=== PATIENT | female | born 1930 | race Caucasian/White ===

== ENCOUNTER → 2016-05-31 | Outpatient (CLI) | payer MEDICARE ==
[~2016-05-31] MED LIST: /PANT40TA; /WARF25TA; /WARF5TA; ACET65TA; ALDA25TA2; ALLO300T; ATEN25TA; BABY81CH; CALCCHW12; DIGO0.126; GEMF600T; LANO0.1211; LASI40TA; LOVAZA; NIAS500T2; PRAV40TA; SPIR25TA2; THERGRAN
--- NOTE | 2016-05-31 10:31 | REP ---
Clinical: Contusion. Technique: AP, lateral, bilateral oblique views of the left foot. Findings: There is an acute nondisplaced fracture at the base of the fifth metatarsal bone. Overlying soft tissue swelling is appreciated. Underlying chronic age-related degenerative changes noted. Small fracture fragments along the lateral aspect of the foot at the calcaneal cuboid joint may represent small acute fracture fragments as well. Impression: Nondisplaced fracture at the base of the fifth metatarsal bone. Small fracture fragments related to the calcaneal cuboid joint region cannot be excluded. Signed by Israel Castro MD 05/31/2016 10:22 A
--- NOTE | 2016-05-31 10:32 | REP ---
Clinical: Contusion. Technique: AP, lateral, bilateral oblique views of the left ankle. Findings: Diffuse soft tissue swelling is appreciated without evidence for ankle fracture. Lateral view best demonstrates a nondisplaced fracture at the base of the fifth metatarsal bone. Trauma involving the calcaneus as well as small fracture fragments along the anterior-superior margin of the calcaneus at the calcaneocuboid region cannot be excluded as well. Impression: Diffuse ankle swelling. Nondisplaced fracture at the fifth metatarsal base. Possible trauma and fractures involving the calcaneus as detailed above. Signed by Israel Castro MD 05/31/2016 10:25 A
== END ==
LOC: M WUC 09:53
PROVIDERS: ATTEND Physician Assistant
DX: S92.355A Nondisplaced fracture of fifth metatarsal bone, left foot, initial encounter for closed fracture (principal); X58.XXXA Exposure to other specified factors, initial encounter; Y92.9 Unspecified place or not applicable

== ENCOUNTER → 2016-11-27 | Outpatient (CLI) | payer MEDICARE ==
[~2016-11-27] MED LIST changes: +ATEN25TA PO; +ATOR40TA75; +ATOR40TA75 PO; +BENZ100C5 PO; +CALC1CAP31; +CALC1CAP31 PO; +CEFD1CAP8; +CEFD1CAP8 PO; +CINA30TA; +DILT30TA; +DILT30TA PO; +FERR1TAB8 PO; +FERR325T3 PO; +FURO40TA2; +FURO40TA2 PO; +ICAPCAP PO; +SENS60TA PO; +SPIR25TA2 PO; +TRAM1CAP15 PO; +TYLE500T78 PO; +VITA100066 PO; +VITA100067 PO; +ZYLO300T4 PO
--- NOTE | 2016-11-27 15:15 | REP ---
Chest x-ray: Two views. History: Fever and cough. Comparison study: June 17, 2009. Findings: There is a mild eventration right hemidiaphragm. The lungs are well inflated and otherwise clear. Pleural angles are sharp. The heart is not enlarged. The aorta is rather tortuous. There are degenerative changes in the thoracic spine. Pulmonary vasculature is not increased. Impression: No active disease. Signed by Graham Garcia MD 11/27/2016 03:06 P
[2016-11-27 18:21] LABS: ALBUMIN 4.1 GM/DL (3.2-5.2); BILIRUBIN,TOTAL 0.6 MG/DL (0.2-1.0); CALCIUM LEVEL 9.7 MG/DL (8.8-10.2); CREATININE FOR GFR 2.51 MG/DL (0.55-1.02); GLOMERULAR FILTRATION RATE 19.4 (>32); TOTAL PROTEIN 8.2 GM/DL (6.4-8.2)
[2016-11-27 18:39] LABS: BASO % 0.2 % (0.0-1.0); LARGE UNSTAINED CELL # 0.1 K/mm3 (0.0-0.4); LARGE UNSTAINED CELL % 0.7 % (0.0-4.0); LYMPH # 1.3 K/mm3 (1.5-4.5); LYMPH % 6.3 % (24.0-44.0); MEAN CORPUSCULAR HEMOGLOBIN 30.4 pg (27.0-33.0); MEAN CORPUSCULAR HGB CONC 33.2 g/dl (32.0-36.5); MEAN CORPUSCULAR VOLUME 91.7 fl (80.0-96.0); MONO # 0.5 K/mm3 (0.0-0.8); MONO % 2.7 % (0.0-5.0); NEUTROPHILS # 17.2 K/mm3 (1.8-7.7); PLATELET COUNT, AUTOMATED 229 k/mm3 (150-450); RED CELL DISTRIBUTION WIDTH 16.1 % (11.5-14.5); WHITE BLOOD COUNT 19.1 K/mm3 (4.0-10.0)
== END ==
LOC: M WUC 14:43
PROVIDERS: ATTEND Physician Assistant
DX: R05 Cough (principal); R50.9 Fever, unspecified

== ENCOUNTER 2016-11-28 10:26 | Inpatient (IN) | payer MEDICARE ==
[~2016-11-28] VITALS: Ht 154.9 cm; Wt 62.6 kg
[2016-11-28] MEDS: HEPARIN SOD (PORCINE) 5000 UNITS/ML VIAL SC SCH ×2 (09:00→20:09)
[~2016-11-28 10:26] MED LIST changes: -ATEN25TA PO; +ATENOLOL 25 MG TAB PO SCH; -ATOR40TA75; -ATOR40TA75 PO; -BENZ100C5 PO; -CALC1CAP31; -CALC1CAP31 PO; -CEFD1CAP8; -CEFD1CAP8 PO; -CINA30TA; -DILT30TA; -DILT30TA PO; -FERR1TAB8 PO; -FERR325T3 PO; -FURO40TA2; -FURO40TA2 PO; -ICAPCAP PO; -SENS60TA PO; -SPIR25TA2 PO; -TRAM1CAP15 PO; -TYLE500T78 PO; -VITA100066 PO; -VITA100067 PO; -ZYLO300T4 PO
[2016-11-28] MEDS ORDERED: TYLE500T78 PO ×2 (10:54→12:28)
[2016-11-28] MEDS ORDERED: TRAM1CAP15 PO (10:54)
[2016-11-28] MEDS ORDERED: SPIR25TA2 (10:54)
[2016-11-28] MEDS ORDERED: VITA100067 PO (10:54)
[2016-11-28] MEDS ORDERED: FERR325T3 PO (10:54)
[2016-11-28] MEDS ORDERED: CINA30TA (10:54)
[2016-11-28] MEDS ORDERED: CEFD1CAP8 (10:54)
[2016-11-28] MEDS ORDERED: ICAPCAP PO ×2 (10:54→12:33)
[2016-11-28] MEDS ORDERED: ATOR40TA75 (10:54)
[2016-11-28] MEDS ORDERED: FURO40TA2 (10:54)
[2016-11-28] MEDS ORDERED: DILT30TA (10:54)
[2016-11-28] MEDS ORDERED: CALC1CAP31 (10:54)
[2016-11-28] MEDS ORDERED: NS 500 ML IV ONE ×2 (11:45)
[2016-11-28 12:00] LABS: BASO % 0.3 % (0.0-1.0); EOS # 0.1 K/mm3 (0.0-0.50); EOS % 0.5 % (0.0-3.0); LARGE UNSTAINED CELL # 0.2 K/mm3 (0.0-0.4); LYMPH # 1.7 K/mm3 (1.5-4.5); MEAN CORPUSCULAR HEMOGLOBIN 30.7 pg (27.0-33.0); MEAN CORPUSCULAR VOLUME 90.2 fl (80.0-96.0); MONO # 0.5 K/mm3 (0.0-0.8); MONO % 3.4 % (0.0-5.0); NEUTROPHILS # 13.3 K/mm3 (1.8-7.7); NEUTROPHILS % 84.7 % (36.0-66.0); PLATELET COUNT, AUTOMATED 209 k/mm3 (150-450); RED CELL DISTRIBUTION WIDTH 16.1 % (11.5-14.5); WHITE BLOOD COUNT 15.7 K/mm3 (4.0-10.0)
[2016-11-28 12:24] LABS: ALBUMIN 3.7 GM/DL (3.2-5.2); ALBUMIN/GLOBULIN RATIO 0.97 (1.00-1.93); ALKALINE PHOSPHATASE 95 U/L (45-117); ALT/SGPT 21 U/L (12-78); ANION GAP 14 MEQ/L (8-16); AST/SGOT 24 U/L (15-37); BILIRUBIN,DIRECT 0.2 MG/DL (0.0-0.2); BILIRUBIN,TOTAL 0.6 MG/DL (0.2-1.0); BLOOD UREA NITROGEN 81 MG/DL (7-18); CALCIUM LEVEL 9.6 MG/DL (8.8-10.2); CARBON DIOXIDE LEVEL 17 MEQ/L (21-32); CHLORIDE LEVEL 105 MEQ/L (98-107); CREATININE FOR GFR 3.11 MG/DL (0.55-1.02); FREE T4 1.44 NG/DL (0.76-1.46); GLOMERULAR FILTRATION RATE 15.1 (>32); GLUCOSE, FASTING 138 MG/DL (83-110); MAGNESIUM LEVEL 2.4 MG/DL (1.8-2.4); POTASSIUM SERUM 3.8 MEQ/L (3.5-5.1); SODIUM LEVEL 136 MEQ/L (136-145); TOTAL PROTEIN 7.5 GM/DL (6.4-8.2)
[2016-11-28] MEDS ORDERED: ZYLO300T4 PO (12:28)
[2016-11-28] MEDS ORDERED: DILT30TA PO (12:33)
[2016-11-28] MEDS ORDERED: VITA100066 PO (12:33)
[2016-11-28] MEDS ORDERED: SPIR25TA2 PO (12:33)
[2016-11-28] MEDS ORDERED: FERR1TAB8 PO (12:33)
[2016-11-28] MEDS ORDERED: CALC1CAP31 PO (12:33)
[2016-11-28] MEDS ORDERED: FURO40TA2 PO (12:33)
[2016-11-28] MEDS ORDERED: SENS60TA PO (12:33)
[2016-11-28] MEDS ORDERED: ATEN25TA PO (12:33)
[2016-11-28] MEDS ORDERED: CEFD1CAP8 PO (12:33)
[2016-11-28] MEDS ORDERED: ATOR40TA75 PO (12:33)
[2016-11-28] MEDS ORDERED: NS 1,000 ML IV ONE ×3 (12:45→13:45)
--- NOTE | 2016-11-28 12:52 | REP ---
PORTABLE CHEST, ONE VIEW: HISTORY: Chest pain. COMPARISON: 11/27/2016 Linear densities are present in the lower lobes consistent with atelectasis or scar. The heart is normal in size. The pulmonary vasculature is normal in appearance. IMPRESSION: Bibasilar atelectasis or scar. Signed by Quinn Carvalho MD 11/28/2016 12:55 P
[2016-11-28] MEDS ORDERED: ONDANSETRON 4MG/2ML VIAL (J2405) IV PRN (13:45)
[2016-11-28] MEDS ORDERED: PERCOCET 5MG/325MG TAB PO PRN (13:45)
[2016-11-28] MEDS ORDERED: DIGOXIN INJ 0.5 MG/2 ML AMP (J1160) IV STA ×2 (14:25→20:26)
--- NOTE | 2016-11-28 16:58 | ECGEPIP ---
Stationary ECG Study [facility] - ED Test Date: 2016-11-28 Pat Name: GEO SOARES Department: Room: - Gender: F Scientific Research Associate: MARITZA : [id number] Requested By: Royce Smith Order Number: [id number] Reading MD: Royce Smith Measurements Intervals [place] Rate: 155 P: HI: 0 QRS: -35 QRSD: 102 T: 7 QT: 278 QTc: 446 Interpretive Statements ATRIAL FIBRILLATION WITH RAPID VENTRICULAR RESPONSE MARKED LEFT AXIS DEVIATION PATTERN CONSISTENT WITH PULMONARY DISEASE ST DEPRESSION, CONSIDER SUBENDOCARDIAL INJURY DELAYED R WAVE PROGRESSION NO PRIOR FOR COMPARISON Electronically Signed On 11-28-2016 16:57:41 EDT by Royce Smith
[2016-11-28 17:19] LABS: CREATININE FOR GFR 2.5 MG/DL (0.55-1.02); GLOMERULAR FILTRATION RATE 19.5 (>32); POTASSIUM SERUM 3.4 MEQ/L (3.5-5.1)
[2016-11-28 17:25] VITALS: BP 100/57
[2016-11-28] MEDS: NS 1,000 ML IV SCH (17:58)
[2016-11-28 20:00] VITALS: BP 97/53
[2016-11-28] MEDS ORDERED: POTASSIUM CHLORIDE 10 MEQ SR TABLET PO ONE (20:00)
[2016-11-28] MEDS: ATORVASTATIN 20 MG TAB PO SCH (20:07)
[2016-11-28] MEDS: ALLOPURINOL 300 MG TAB PO SCH (20:08)
[2016-11-28] MEDS: ACETAMINOPHEN TAB 650MG DOSE (2X325MG) PO PRN (20:08)
--- NOTE | 2016-11-28 21:59 | HPE ---
DATE OF ADMISSION: 11/28/2016 PRIMARY CARE PHYSICIAN: Dr. Mcneil BANQUET CHEF: Dr. Parson KNIFE EDGER: Dr. Hernadez CHIEF COMPLAINT: Diarrhea, fatigue, abnormal labs. HISTORY OF PRESENT ILLNESS: Ms. Rangel is an 86-year-old female who presented to the emergency room (ER) due to recommendation from urgent care. 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 Patient expressed that she had about 12 episodes of diarrhea. Patient denies noticing blood in her stool. Patient was not nauseated or vomiting. Patient expressed that on Wednesday patient went to the urgent care, who started her on cefdinir 300 mg by mouth daily. Patient expressed that she took the dose yesterday and this morning. Patient also expressed that due to the diarrhea she has been using Imodium, she which bought over the counter. Patient expressed that for the last year she had diarrhea on and off; however, it was not as bad as this one. Patient expressed that she has lost her appetite, and the last meal that she had was yesterday; however, she tried to keep herself hydrated by drinking more water. Patient denies sick contacts. Patient denies new diet. Patient denies feeling lightheadedness or dizziness. Patient also denies syncope, seizure-type activities. Patient also denies palpitations, racing or skipping heartbeat. ALLERGIES: 1. ASPIRIN. 2. QUINOLONES. 3. RIFAXIMIN. 4. SULFAMETHOXAZOLE WITH TRIMETHOPRIM 5. WARFARIN. PAST MEDICAL HISTORY: 1. Hiatal hernia. 2. History of recurrent painless rectal bleeding of unclear etiology. 3. Mild diverticulitis disease by colonoscopy in 2006 or 2009. 4. Minimal hemorrhoidal disease by colonoscopy in 2006 or 2009. 5. Paroxysmal atrial fibrillation. Patient was on Coumadin; however, Coumadin has been stopped due to gastrointestinal (GI) bleeding. 6. Congestive heart failure with chronic diastolic dysfunction. Patient expressed that her latest echocardiogram was done in 2009. 7. Hypertension. 8. Dyslipidemia. 9. Mitral regurgitation. 10. Chronic kidney disease, stage III. 11. Gout. PAST SURGICAL HISTORY: 1. Appendectomy. 2. Tonsillectomy. 3. Bilateral cataract surgery. 4. Colonoscopy. HOME MEDICATIONS: - acetaminophen 1000 mg by mouth four times a day as needed pain - allopurinol 300 mg by mouth at bedtime - atenolol 25 mg by mouth daily - atorvastatin 40 mg by mouth at bedtime - calcitriol 0.25 mcg by mouth two times a week, Sundays and Wednesdays - cefdinir 300 mg by mouth daily for 10 days - cholecalciferol 1000 units by mouth daily - Sensipar 60 mg by mouth five times a week, Wednesday through Wednesday - diltiazem 30 mg by mouth twice a day - ferrous sulfate 325 mg by mouth daily - furosemide 40 mg by mouth daily - I-caps one capsule by mouth daily - spironolactone 25 mg by mouth daily SOCIAL HISTORY: Patient lives alone. Patient has three daughters. One of the daughters had a stroke at age 40s. Patient expressed that she started smoking at age 18; however, patient stopped smoking in 1972. Patient used to smoke about two packs a day. Patient denies illicit drug use. Patient denies alcohol usage. Patient has not traveled outside of the [place]. Patient has no pets. 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 FAMILY HISTORY: Patient has five brothers who , two of them due to suicide. One brother had a heart attack at age 53. The other two patient cannot remember the cause of . Patient has a half-sister who does not know anything about her health. Patient's mother due to a stroke and diabetes. Patient's father when patient was very young, and she does not remember about the cause of . REVIEW OF SYSTEMS: GENERAL: Patient expressed that she had a fever yesterday; however, at this time patient denies fevers, chills, or night sweats. Patient denies weight loss or weight gain. HEENT: Patient denies lightheadedness, dizziness, acute vision or hearing changes. Patient also denies sinusitis or problem with chewing food. NECK: Patient has no lumps, bumps, or decreased motion of her neck. HEART: Patient denies palpitations, racing or skipping heartbeat or chest pain. LUNGS: Patient denies shortness of breath, coughing, or wheezing. ABDOMEN: Patient has no abdominal pain, nausea, or vomiting; however, patient has diarrhea; however, patient denies hematochezia or melena. Patient also expressed that her episodes of diarrhea have decreased since yesterday. NEUROLOGIC: Patient denies history of transient ischemic attack (TIA), seizure, or seizure-type activities. PHYSICAL EXAMINATION: VITAL SIGNS: Temperature 97.7, pulse 123, blood pressure 93/63, pulse oximetry 93 on room air. GENERAL APPEARANCE: Patient was lying in bed in no acute distress. Patient was awake, alert, and oriented to time, place, and person. HEENT: Normocephalic, atraumatic. Pupils are equal and reactive to light. Oral mucosa is dry. NECK: Soft, supple. No lymphadenopathy. No thyromegaly. No jugular venous distention (JVD). HEART: Irregularly irregular. ABDOMEN: Soft, mild discomfort with palpation in all quadrants. Positive bowel sounds in all quadrants. LUNGS: Clear breath sounds bilaterally. Good air movement. EXTREMITIES: No lower extremity edema. +2 pulses in both lower extremities. Patient has normal range of motion in both upper and lower extremities; however, patient has mild decreased range of motion in the ankle of the right lower extremity due to the fall that happened last May after surgery. Patient has normal sensation in her both upper and lower extremities. No edema, cyanosis was noticed. NEUROLOGIC: Cranial nerves II-XII were intact. No focal deficiencies. LABORATORY DATA: White blood cells 15.7, red blood cells 4.54, hemoglobin 13.9, hematocrit 41, MCV 90.2, MCH 30.7, MCHC 34, RDW 16.1, platelet count 209, neutrophils percentage 84.7, lymphocyte percentage 10, monocyte percentage 3.4, eosinophil percentage 0.5, basophil percentage 0.3, leukocyte percentage 1. Sodium 136, potassium 3.8, chloride 105, carbon dioxide 17, anion gap 14, BUN 81 , creatinine 3.11, glomerular filtration rate 1.1, fasting glucose 138, calcium 9.6, magnesium 2.4. Total bilirubin 0.6, direct bilirubin 0.2, AST 224, ALT 21, alkaline phosphatase 95. Total creatinine kinase 180, CK-MB 1.5, CK-MB relative index 0.8, troponin I less than 0.02. Total protein 7.5, albumin 3.7. TSH 3.39, free T4 of 1.44. Urinalysis (UA): Urine color palomo. Urine appearance cloudy. Urine pH 5. Urine specific gravity 1.016, urine protein negative. Urine glucose 1+, urine ketones trace, urine blood negative, urine nitrites negative, urine bilirubin negative, urine urobilinogen 0.2, urine leukocyte esterase, urine white blood cells 0, urine red blood cells 2, urine hyaline casts 29, bacterial negative, urine squamous epithelial cells 1. Granular casts 3. IMAGING TECHNIQUE: Chest x-ray shows bibasilar atelectasis or scar. ASSESSMENT AND PLAN: 1. Diarrhea. At this point, we have ordered gastrointestinal (GI) panel. Result is pending at this time. We will made the patient nothing by mouth. Patient was started on cefdinir by urgent care; however, I have stopped this medication due to unknown cause of the diarrhea. Also patient has received a total of normal saline bolus. Will patient on intravenous (IV) fluid. Also we have ordered blood culture. Result is pending at this time. Also we have ordered occult blood test, and result is pending. 2. Leukocytosis. This could be secondary to infection versus stress due to dehydration. Lactic acid was negative. Patient was started on cefdinir; however, I have held cefdinir. We have ordered blood cultures, GI panel. Result is pending at this time. UA did not indicate possibility of urinary tract infection (UTI). We will continue to monitor patient for any abnormal symptoms. 3. Atrial fibrillation. Patient's rate is not controlled. This could be secondary to hypovolemic status that contributed to exacerbation of the heart rate. We have started patient on IV fluid. Also we gave one dose of digoxin 0.5 mg IV, and we will reassess the heart rate. Also we have administered diltiazem 30 mg once, and patient is on IV fluid. EKG did not show any new pathology. The first cardiac marker was negative. We will repeat the troponin three times. CHADS-VASc score indicated patient requires to be on anticoagulation; however, due to the GI bleeding, anticoagulation was stopped by the healthcare provider. We will continue monitoring patient of any abnormal symptoms. 4. Acute kidney injury superimposed on chronic kidney disease. This could be preazotemia (hypovolemic) versus azotemia. Medications spironolactone and furosemide). At this time we have held furosemide and spironolactone. The patient is on IV fluid. Also I have ordered urine sodium, urine creatinine, and urine urea to calculate FENa as well as the fractional excretion of the urea. Result is pending at this time. Also we have ordered renal ultrasound. Result is pending at this time. We will continue on the current IV fluid. Also we will recheck the basic metabolic panel again this afternoon for followup regarding renal function. Patient has been diagnosed with chronic kidney disease, stage III. 5. History of diastolic congestive heart failure. Patient did not have a new echocardiogram done today. Based on physical examination, patient is not on hypovolemic. At this time, we will continue patient on IV fluid, and we have ordered echocardiogram. Result is pending at this time. 6. Cough. Chest x-ray shows bibasilar atelectasis with possibility of scar. We have ordered GI panel. Result is pending at this time. 7. Hyperlipidemia. Patient is on Lipitor 40 mg by mouth at bedtime. 8. Iron deficiency. Patient is on ferrous sulfate 325 mg by mouth. Patient has normal range hemoglobin and hematocrit. 9. Deep vein thrombosis (DVT) prophylaxis. Patient is on heparin 5000 units subcutaneous twice a day. 10. Mitral regurgitation. This is a chronic issue. 11. Gout. Patient is on allopurinol. 12. Hypertension. At home patient was on furosemide and spironolactone; however , we have held these medications due to abnormal renal function. At this time we will continue patient on atenolol and diltiazem with holding parameters. 13. Hiatal hernia. Patient is asymptomatic. 14. Vitamin D deficiency. We will continue patient on vitamin D 1000 units by mouth daily. 15. History of GI bleeding. We have ordered occult blood test. Result is pending at this time. My preceptor for this patient encounter was Dr. Natalya Pennington. The preceptor was physically present in the building during the encounter and was fully available as needed. All aspects of the patient interview, examination, medical decision making process, and medical care plan development were reviewed and approved by the preceptor. The preceptor is aware and concurs with the plan as stated in the body of this note and will attest to such by his/her co-signature. ALYSON
[2016-11-28 23:59] VITALS: BP 103/51
[2016-11-29 04:00] VITALS: BP 120/75
[2016-11-29 04:48] LABS: BASO % 0.2 % (0.0-1.0); EOS # 0.3 K/mm3 (0.0-0.50); EOS % 3.5 % (0.0-3.0); LARGE UNSTAINED CELL # 0.2 K/mm3 (0.0-0.4); LARGE UNSTAINED CELL % 1.8 % (0.0-4.0); LYMPH # 1.8 K/mm3 (1.5-4.5); LYMPH % 17.2 % (24.0-44.0); MEAN CORPUSCULAR HEMOGLOBIN 30.2 pg (27.0-33.0); MEAN CORPUSCULAR VOLUME 91.7 fl (80.0-96.0); MONO # 0.5 K/mm3 (0.0-0.8); MONO % 4.9 % (0.0-5.0); NEUTROPHILS # 6.8 K/mm3 (1.8-7.7); NEUTROPHILS % 72.4 % (36.0-66.0); PLATELET COUNT, AUTOMATED 175 k/mm3 (150-450); RED CELL DISTRIBUTION WIDTH 16.1 % (11.5-14.5); WHITE BLOOD COUNT 9.4 K/mm3 (4.0-10.0)
[2016-11-29 05:06] LABS: ALBUMIN 2.6 GM/DL (3.2-5.2); ALBUMIN/GLOBULIN RATIO 0.81 (1.00-1.93); BILIRUBIN,TOTAL 0.5 MG/DL (0.2-1.0); CALCIUM LEVEL 8.3 MG/DL (8.8-10.2); CREATININE FOR GFR 1.61 MG/DL (0.55-1.02); GLOMERULAR FILTRATION RATE 32.4 (>32); MAGNESIUM LEVEL 2.2 MG/DL (1.8-2.4); POTASSIUM SERUM 3.4 MEQ/L (3.5-5.1); TOTAL PROTEIN 5.8 GM/DL (6.4-8.2)
[2016-11-29] MEDS: NS 1,000 ML IV SCH (06:25)
[2016-11-29 07:30] VITALS: BP 113/57
--- NOTE | 2016-11-29 07:43 | REP ---
RENAL ULTRASOUND: HISTORY: Normal renal function. The kidneys are normal in echogenicity. The right kidney measures 6.1 cm in transverse x 5 cm in AP x 10.6 cm in cephalocaudal dimensions. The left kidney measures 4.5 cm in transverse x 5 cm in AP x 10.5 cm in cephalocaudal dimensions. There is bilateral cortical thinning. A 1.4 cm cyst is present in the right kidney. Two cysts are present in the left kidney. These measure 1.1 and 2 cm. There is no hydronephrosis or mass. The urinary bladder is not seen. IMPRESSION: 1. There is bilateral cortical thinning. 2. Small bilateral renal cysts. Signed by Quinn Carvalho MD 11/29/2016 07:47 A
[2016-11-29] MEDS ORDERED: POTASSIUM CHLORIDE 10 MEQ SR TABLET PO ONE (07:45)
[2016-11-29] MEDS: HEPARIN SOD (PORCINE) 5000 UNITS/ML VIAL SC SCH (08:06)
[2016-11-29] MEDS: VITAMIN D 1,000 INTERNATIONAL UNITS TABLET PO SCH (08:07)
[2016-11-29] MEDS: FERROUS SULFATE 325MG TAB PO SCH (08:07)
[2016-11-29] MEDS: SODIUM BICARBONATE 325 MG TAB PO SCH ×4 (09:41→20:59)
[2016-11-29] MEDS: AZITHROMYCIN 250 MG TAB PO SCH (09:42)
[2016-11-29] MEDS: ACETAMINOPHEN TAB 650MG DOSE (2X325MG) PO PRN ×2 (11:39→20:58)
--- NOTE | 2016-11-29 11:53 | IPN ---
DATE: 11/29/2016 Patient seen and examined at the bedside. Chart has been reviewed. This morning patient states that she has had two loose bowel movements. Microbiology grew out Campylobacter in gastrointestinal (GI) panel. Patient denies any shortness of breath, chest pain, pressure or tightness, palpitations, lightheadedness or dizziness. Temperature 98.3, pulse 81, respiratory rate 20, blood pressure 113/66, 94% on room air. Lungs are clear to auscultation. No wheezing, rales, or rhonchi. Heart: S1, S2, sinus rhythm. Abdomen is soft, nontender, nondistended. Positive bowel sounds times four quadrants. Extremities: No pitting edema. White count 9.4, hemoglobin 10, hematocrit 32, platelet count 175. Sodium 142, potassium 3.4, chloride 117, bicarbonate 17, BUN 15, creatinine 1.61. Glucose of 81. Microbiology reviewed. ASSESSMENT AND PLAN: This is an 86-year-old female, history of hiatal hernia, rectal bleeding, diverticulitis, hemorrhoidal bleeding, paroxysmal atrial fibrillation, not on Coumadin due to gastrointestinal bleed, congestive heart failure (CHF), chronic diastolic dysfunction, hypertension, dyslipidemia, mitral regurgitation, chronic kidney disease, stage III and gout, presents to the emergency room with ongoing diarrhea and fatigue, was found to have acute on chronic renal failure. She was recently given cefdinir for unknown diagnosis by urgent care. Currently has Campylobacter gastroenteritis. IMPRESSION: 1. Campylobacter gastroenteritis. Usually self-limited. 7 days would be at 3 days. Continue supportive care with intravenous fluid. Monitor intake and output and symptoms of CHF. Continue with diet. Supplement potassium, magnesium as needed and bicarbonate tablets until patient's base balance is normalized. 2. Atrial fibrillation with rapid ventricular response (RVR). Improved. Current rate 81-87, 86-84 on home on home dose of diltiazem 30 twice a day. Currently still on intravenous fluids due to severe dehydration. 3. Acute on chronic renal failure secondary to diarrhea and dehydration. Improved overnight. Continue with fluid hydration and monitor respiratory status. 4. Congestive heart failure, compensated diastolic dysfunction. Monitor for decompensation in light of IV fluids being given for renal failure. 5. History of gastrointestinal bleed. No anticoagulation for AFib due to GI bleed. Patient currently has heme positive stool, most likely due to Campylobacter. Monitor hemoglobin and hematocrit. No acute indication for RBC transfusion.
[2016-11-29 13:17] VITALS: BP 116/56
[2016-11-29] MEDS: BENZONATATE 100 MG CAP PO PRN (15:39)
[2016-11-29 18:31] LABS: CALCIUM LEVEL 8.6 MG/DL (8.8-10.2); CREATININE FOR GFR 1.43 MG/DL (0.55-1.02); GLOMERULAR FILTRATION RATE 37.1 (>32)
[2016-11-29] MEDS: ATORVASTATIN 20 MG TAB PO SCH (20:58)
[2016-11-29] MEDS: ALLOPURINOL 300 MG TAB PO SCH (20:59)
[2016-11-29 22:00] VITALS: BP 136/63
[2016-11-30 00:36] LABS: CALCIUM LEVEL 8.5 MG/DL (8.8-10.2); CREATININE FOR GFR 1.36 MG/DL (0.55-1.02); GLOMERULAR FILTRATION RATE 39.3 (>32); POTASSIUM SERUM 3.7 MEQ/L (3.5-5.1)
--- NOTE | 2016-11-30 05:53 | ECHO ---
DATE OF PROCEDURE: 11/29/2016 AGE: 86 GENDER: Female REFERRING PHYSICIAN: Dr. Tashia Kauffman/ Alex Joseph HEIGHT: 61 inches. WEIGHT: 136 pounds. BODY SURFACE AREA: 1.6 sq m. INPATIENT: PCU Room 3216. INDICATION: Paroxysmal atrial fibrillation. MEASUREMENTS: 2D MEASUREMENTS: RV - 4.2 cm LV- 4.2 cm Septum - 1.3 cm Posterior wall - 1.2 cm Aortic root - 3.1 cm LA - 4.8 cm LVEF - 75% DOPPLER MEASUREMENTS: AV - 1.9 m/s LVOT - 1.7 m/s MV-E: 150 A: 110 EA ratio 1.4 Early mitral deacceleration time: 214 ms E-prime - 8 A-prime - 7 E/E prime ratio 19 PV - 1.0 m/s Pulmonary artery acceleration time 79 ms RVSP - 54 mmHg IVC - 2.0 cm COMMENTS: Normal sinus rhythm without intraventricular conduction disturbance. Moderately dilated left atrium but normal left ventricular size. Right heart chamber sizes were mildly increased. LV wall thickness was symmetrically hypertrophied. On real-time imaging from the parasternal and apical projections , wall motion was symmetrical and hyperkinetic. Moderate mitral annular calcification but normal leaflet thickness and excursion with no posterior systolic buckling. Three equal size aortic cusps with slightly thickened cusp edges but adequate cusp separation. Normal aortic root size. No apparent intracardiac mass or pericardial effusion. Color flow Doppler study taken from the parasternal and apical projection showed trace aortic, mild mitral and mild tricuspid insufficiency. Guided continuous wave Doppler of her aortic valve showed a normal peak systolic velocity against LV outflow tract obstruction. Pulsed and continuous wave Doppler of her LV inflow tract taken from the apical four-chamber projection showed normal diastolic filling velocities against mitral stenosis. There was a normal filling pattern but a prolonged early mitral deceleration time and tissue Doppler evidence of LV diastolic dysfunction with at least a mildly elevated mean left atrial pressure. Pulsed and continuous wave Doppler of her pulmonary trunk showed a normal peak systolic velocity against RV outflow tract obstruction. Her pulmonary artery acceleration time was significantly abbreviated consistent with an elevated pulmonary vascular resistance. Guided continuous wave Doppler of her tricuspid valve allowed our estimation of her right ventricular systolic pressure (at least moderately increased). Her inferior vena cava was upper limits of normal in size with reduced respiratory collapse suggestive of an elevated central venous pressure of at least 10 - 15 mmH. CONCLUSIONS: Mild concentric left ventricular hypertrophy with hyperkinetic wall motion. Moderately dilated left atrium with Doppler evidence of an impairment of LV diastolic function and at least mildly elevated mean left atrial pressure. Mildly dilated right heart chambers with Doppler evidence of at least moderate pulmonary hypertension. Normal IVC size but reduced respiratory collapse in keeping with an elevated central venous pressure. Mild aortic valvular sclerosis without stenosis but only trace insufficiency. Moderate mitral annular calcification without inflow tract obstruction and only mild insufficiency. The above test findings are consistent with hypertensive heart disease being the underlying condition predisposing to her paroxysmal atrial fibrillation. She certainly has sufficient risk factors according to the CHADS2 VASc score to warrant lifelong oral anticoagulation. MTDD
[2016-11-30 06:00] VITALS: BP 103/56
[2016-11-30 06:18] LABS: BASO % 0.2 % (0.0-1.0); EOS # 0.3 K/mm3 (0.0-0.50); EOS % 3.2 % (0.0-3.0); LARGE UNSTAINED CELL # 0.2 K/mm3 (0.0-0.4); LARGE UNSTAINED CELL % 1.8 % (0.0-4.0); LYMPH # 1.1 K/mm3 (1.5-4.5); MEAN CORPUSCULAR HEMOGLOBIN 30.3 pg (27.0-33.0); MEAN CORPUSCULAR HGB CONC 33.2 g/dl (32.0-36.5); MEAN CORPUSCULAR VOLUME 91.3 fl (80.0-96.0); MONO # 0.5 K/mm3 (0.0-0.8); MONO % 4.6 % (0.0-5.0); NEUTROPHILS # 7.7 K/mm3 (1.8-7.7); NEUTROPHILS % 79.2 % (36.0-66.0); PLATELET COUNT, AUTOMATED 200 k/mm3 (150-450); RED CELL DISTRIBUTION WIDTH 15.9 % (11.5-14.5); WHITE BLOOD COUNT 9.8 K/mm3 (4.0-10.0)
[2016-11-30 06:36] LABS: ALBUMIN 2.5 GM/DL (3.2-5.2); ALBUMIN/GLOBULIN RATIO 0.74 (1.00-1.93); BILIRUBIN,TOTAL 0.4 MG/DL (0.2-1.0); CALCIUM LEVEL 8.5 MG/DL (8.8-10.2); CREATININE FOR GFR 1.26 MG/DL (0.55-1.02); MAGNESIUM LEVEL 2.3 MG/DL (1.8-2.4); POTASSIUM SERUM 3.7 MEQ/L (3.5-5.1); TOTAL PROTEIN 5.9 GM/DL (6.4-8.2)
[2016-11-30] MEDS: SODIUM BICARBONATE 325 MG TAB PO SCH (08:30)
[2016-11-30] MEDS: VITAMIN D 1,000 INTERNATIONAL UNITS TABLET PO SCH (08:31)
[2016-11-30] MEDS: FERROUS SULFATE 325MG TAB PO SCH (08:31)
[2016-11-30] MEDS: BENZONATATE 100 MG CAP PO PRN (08:31)
[2016-11-30] MEDS: AZITHROMYCIN 250 MG TAB PO SCH (08:31)
[2016-11-30] MEDS ORDERED: BICITRA 30ML SOLN UDC PO ONE ×2 (09:15→12:00)
--- NOTE | 2016-11-30 09:58 | REP ---
Chest two views HISTORY: Shortness of breath Comparison: 11/28/2016 Linear densities are present in the lower lobes consistent with atelectasis or scar. The heart is normal in size. The pulmonary vasculature is normal in appearance. The bony structure is intact. IMPRESSION: Bibasilar atelectasis or scar. Signed by Quinn Carvalho MD 11/30/2016 09:51 A
[2016-11-30 14:00] VITALS: BP 101/54
[2016-11-30 18:02] VITALS: BP 132/63
[2016-11-30] MEDS ORDERED: NS 1,000 ML IV SCH (18:15)
[2016-11-30 19:11] LABS: CALCIUM LEVEL 8.6 MG/DL (8.8-10.2); CREATININE FOR GFR 1.24 MG/DL (0.55-1.02); GLOMERULAR FILTRATION RATE 43.8 (>32); POTASSIUM SERUM 3.7 MEQ/L (3.5-5.1)
[2016-11-30] MEDS: ATORVASTATIN 20 MG TAB PO SCH (20:39)
[2016-11-30] MEDS: BICITRA 30ML SOLN UDC PO SCH (20:39)
[2016-11-30] MEDS: CINACALCET 30 MG TAB (SENSIPAR) PO SCH (20:39)
[2016-11-30] MEDS: LACTOBACILLUS ACIDOPHILUS CAP (BACID) PO SCH (20:39)
[2016-11-30] MEDS: ALLOPURINOL 300 MG TAB PO SCH (20:40)
[2016-11-30] MEDS: ACETAMINOPHEN TAB 650MG DOSE (2X325MG) PO PRN (20:40)
[2016-11-30 22:00] VITALS: BP 123/57
--- NOTE | 2016-11-30 23:32 | IPN ---
DATE: 11/30/2016 This morning, the patient was seen and examined at the bedside. Chart has been reviewed. The patient stated that she had four bowel movements yesterday; this morning had two, throughout the day had ten total per nursing. Tolerating her diet. No nausea or vomiting, but complains of bilateral lower quadrant pain. No abdominal distention. No fever or chills. Denies dysuria, urgency or frequency. GI panel was negative for Clostridium difficile (C diff), positive for Campylobacter with heme positive stool. VITAL SIGNS: Temperature 98.9, pulse 92, respiratory rate 20, blood pressure 132/63, 95% on room air. GENERAL: Patient is anicteric. No jaundice. Speaks in full sentences with a slight cough. No respiratory distress. Able to speak in full sentences. LUNGS: Fine crackles at the bases but clear IN THE UPPER lobes No wheezing or rales. HEART: S1, S2 sinus rhythm. ABDOMEN: Soft, slightly tender bilateral lower quadrants, nondistended. No rebound, guarding. EXTREMITIES: Have no pitting edema. LABORATORY DATA: CBC: Metabolic panel notable for a creatinine of 1.24, which is her baseline. Microbiology reviewed. Campylobacter positive on GI panel. ASSESSMENT AND PLAN: This is an 86-year-old female with a history of hiatal hernia, rectal bleeding, diverticulitis, hemorrhoidal bleed, paroxysmal atrial fibrillation, not on Coumadin due to GI bleed, CHF, chronic diastolic dysfunction, hypertension, dyslipidemia, mitral regurgitation, chronic kidney disease stage III, currently baseline creatinine is 1.3 to 1.4, gout, presents to the emergency room (ER) with ongoing diarrhea, fatigue, with recent treatment for right hand cellulitis with persistent diarrhea, felt to have acute on chronic renal failure. The patient was found on GI panel to have Campylobacter gastroenteritis. IMPRESSION: 1. Campylobacter gastroenteritis. Usually self-limited with peak symptoms since 3 days. Due to acute on chronic renal failure and hospitalization, the patient has been given azithromycin for 3 days. Continue with supportive care with intravenous fluids. Monitor intake and output and symptoms for congestive heart failure (CHF). Despite cough this morning, the patient's chest x-ray is unchanged and continue to advance diet if tolerated. Supplement potassium, magnesium if needed and bicarbonate, change to Bicitra and recheck a metabolic panel. 2. Atrial fibrillation with rate control. Current rate is 81 to 87 on home dose of diltiazem 30 mg twice a day. 3. Acute on chronic renal failure secondary to diarrhea, dehydration. Currently back to baseline but has had ten bowel movements throughout the day today. Resume IV fluids and monitor for worsening symptoms of heart failure. 4. Congestive heart failure. Despite the chest x-ray is negative and due to ongoing diarrhea and dehydration, will continue with monitoring decompensation but will continue on IV fluids. 5. History of gastrointestinal (GI) bleed. Heme positive stool due to Campylobacter gastroenteritis. No anticoagulation of her atrial fibrillation. Hemoglobin and hematocrit remain stable. No acute indication for red blood cell (RBC) transfusion. 6. Deep vein thrombosis (DVT) prophylaxis with compression stockings. [facility]
[2016-12-01 06:00] VITALS: BP 136/68
[2016-12-01 06:07] LABS: BASO % 0.3 % (0.0-1.0); EOS # 0.6 K/mm3 (0.0-0.50); LARGE UNSTAINED CELL # 0.2 K/mm3 (0.0-0.4); LARGE UNSTAINED CELL % 1.9 % (0.0-4.0); LYMPH # 1.5 K/mm3 (1.5-4.5); LYMPH % 14.6 % (24.0-44.0); MEAN CORPUSCULAR HEMOGLOBIN 30.6 pg (27.0-33.0); MEAN CORPUSCULAR HGB CONC 34.3 g/dl (32.0-36.5); MEAN CORPUSCULAR VOLUME 89.1 fl (80.0-96.0); MONO # 0.4 K/mm3 (0.0-0.8); NEUTROPHILS # 6.3 K/mm3 (1.8-7.7); NEUTROPHILS % 72.2 % (36.0-66.0); PLATELET COUNT, AUTOMATED 210 k/mm3 (150-450); RED CELL DISTRIBUTION WIDTH 16.1 % (11.5-14.5); WHITE BLOOD COUNT 8.8 K/mm3 (4.0-10.0)
[2016-12-01 06:20] LABS: ALBUMIN 2.6 GM/DL (3.2-5.2); ALBUMIN/GLOBULIN RATIO 0.79 (1.00-1.93); BILIRUBIN,TOTAL 0.4 MG/DL (0.2-1.0); CALCIUM LEVEL 8.2 MG/DL (8.8-10.2); CREATININE FOR GFR 1.03 MG/DL (0.55-1.02); GLOMERULAR FILTRATION RATE 54.2 (>32); POTASSIUM SERUM 3.7 MEQ/L (3.5-5.1); TOTAL PROTEIN 5.9 GM/DL (6.4-8.2)
[2016-12-01] MEDS: BICITRA 30ML SOLN UDC PO SCH ×3 (09:53→20:11)
[2016-12-01] MEDS: VITAMIN D 1,000 INTERNATIONAL UNITS TABLET PO SCH (09:53)
[2016-12-01] MEDS: FUROSEMIDE 40 MG TAB PO SCH (09:53)
[2016-12-01] MEDS: FERROUS SULFATE 325MG TAB PO SCH (09:54)
[2016-12-01] MEDS: LACTOBACILLUS ACIDOPHILUS CAP (BACID) PO SCH ×2 (09:54→20:11)
[2016-12-01] MEDS: AZITHROMYCIN 250 MG TAB PO SCH (09:54)
[2016-12-01 14:00] VITALS: BP 135/63
--- NOTE | 2016-12-01 15:23 | IPN ---
DATE: 12/01/2016 SUBJECTIVE: The patient is seen and examined in the room today. The patient stated that her bowel movement frequency has decreased. No overnight events were reported. OBJECTIVE: VITAL SIGNS: Temperature 98, pulse 79, respirations 17, blood pressure 136/68, pulse oximetry 94% on room air. GENERAL: No sign of acute distress. Alert and oriented times three. HEENT: Normocephalic, atraumatic. Extraocular motors are grossly intact. CARDIOVASCULAR: Positive S1, S2. Irregularly irregular, heart rate controlled. LUNGS: Very fine crackles noticeable in the bilateral lower base. No wheezes. ABDOMEN: Soft, nontender, nondistended. Bowel sounds present. EXTREMITIES: Pressure stocking in place. No significant edema appreciated. LABORATORY DATA: WBC 8.8, hemoglobin 10.1, hematocrit 29.4, platelet count is 210. Sodium is 146, potassium 3.7, chloride is 119, carbon dioxide 19, BUN 25, creatinine 1.03, GFR is 54.2, fasting glucose 91, calcium 8.2, magnesium 2.0, total bilirubin is 0.4, AST 29, ALT 23, alkaline phosphatase is 91, total protein 5.9, albumin 2.6. ASSESSMENT AND PLAN: 1. Campylobacter infection. The patient is on azithromycin. Per patient, her bowel movement frequency and severity has been decreased. The patient is able to tolerate good oral intake so we will discontinue the IV fluids for now. 2. Atrial fibrillation. The patient is on Cardizem 30 mg by mouth twice a day. Anticoagulation was stopped due to frequent GI bleed. 3. Diastolic congestive heart failure (CHF). The patient has been receiving IV fluid due to her severe diarrhea. Now the patient's output showed significant improvement. We will discontinue the IV fluid. The patient was started on oral Lasix. We will continue to monitor input and output and daily weights. 4. Acute on chronic kidney failure. At the time of admission, the patient had a creatinine of 3.11. The patient has been receiving IV fluid. Now creatinine is 1.03 with a GFR of 54.2. Continue to follow. 5. History of gastrointestinal bleed. The patient had a hemoccult positive due to Campylobacter gastroenteritis. The patient is not taking anticoagulation for the patient's atrial fibrillation. 6. Dyslipidemia. 7. History of gout. The patient is on allopurinol. 8. Deep vein thrombosis (DVT) prophylaxis. The patient is on TEDs, sequential compression device (SCD).
[2016-12-01] MEDS: CINACALCET 30 MG TAB (SENSIPAR) PO SCH (20:10)
[2016-12-01] MEDS: ATORVASTATIN 20 MG TAB PO SCH (20:10)
[2016-12-01] MEDS: ALLOPURINOL 300 MG TAB PO SCH (20:11)
[2016-12-01 22:00] VITALS: BP 136/62
[2016-12-02 06:00] VITALS: BP 112/59
[2016-12-02 06:16] LABS: BASO % 0.4 % (0.0-1.0); EOS # 0.8 K/mm3 (0.0-0.50); EOS % 8.5 % (0.0-3.0); LARGE UNSTAINED CELL # 0.2 K/mm3 (0.0-0.4); LARGE UNSTAINED CELL % 1.5 % (0.0-4.0); LYMPH # 1.4 K/mm3 (1.5-4.5); LYMPH % 14.8 % (24.0-44.0); MEAN CORPUSCULAR HEMOGLOBIN 29.9 pg (27.0-33.0); MEAN CORPUSCULAR HGB CONC 33.7 g/dl (32.0-36.5); MEAN CORPUSCULAR VOLUME 88.8 fl (80.0-96.0); MONO # 0.4 K/mm3 (0.0-0.8); MONO % 3.8 % (0.0-5.0); NEUTROPHILS # 6.9 K/mm3 (1.8-7.7); NEUTROPHILS % 70.9 % (36.0-66.0); PLATELET COUNT, AUTOMATED 242 k/mm3 (150-450); RED CELL DISTRIBUTION WIDTH 16.1 % (11.5-14.5); WHITE BLOOD COUNT 9.8 K/mm3 (4.0-10.0)
[2016-12-02 06:29] LABS: ALBUMIN 2.5 GM/DL (3.2-5.2); ALBUMIN/GLOBULIN RATIO 0.78 (1.00-1.93); BILIRUBIN,TOTAL 0.3 MG/DL (0.2-1.0); CALCIUM LEVEL 7.5 MG/DL (8.8-10.2); CREATININE FOR GFR 0.99 MG/DL (0.55-1.02); GLOMERULAR FILTRATION RATE 56.8 (>32); MAGNESIUM LEVEL 1.8 MG/DL (1.8-2.4); POTASSIUM SERUM 3.6 MEQ/L (3.5-5.1); TOTAL PROTEIN 5.7 GM/DL (6.4-8.2)
[2016-12-02 08:57] VITALS: BP 102/56
[2016-12-02] MEDS: FERROUS SULFATE 325MG TAB PO SCH (08:57)
[2016-12-02] MEDS: FUROSEMIDE 40 MG TAB PO SCH (08:57)
[2016-12-02] MEDS: LACTOBACILLUS ACIDOPHILUS CAP (BACID) PO SCH (08:57)
[2016-12-02] MEDS: VITAMIN D 1,000 INTERNATIONAL UNITS TABLET PO SCH (08:57)
[2016-12-02] MEDS: BICITRA 30ML SOLN UDC PO SCH ×2 (08:57→15:45)
[2016-12-02] MEDS ORDERED: BENZ100C5 PO (09:28)
[2016-12-02] MEDS: BENZONATATE 100 MG CAP PO PRN (10:08)
[2016-12-02 14:00] VITALS: BP 135/77
--- NOTE | 2016-12-02 19:55 | DSES ---
DATE OF ADMISSION: 11/28/2016 DATE OF DISCHARGE: 12/02/2016 PRIMARY CARE PROVIDER: Luz Mcneil CONSULTANTS: None. PROCEDURES: None. COMPLICATIONS: None. DISCHARGE DIAGNOSES: 1. Campylobacter gastroenteritis. 2. Atrial fibrillation. 3. Diastolic congestive heart failure. 4. Acute on chronic kidney failure. 5. Metabolic acidosis. 6. History of gastrointestinal (GI) bleed from Campylobacter gastroenteritis. 7. Dyslipidemia. 8. Gout. HOSPITALIZATION COURSE: Patient is an 86-year-old female who presented to [facility] on 11/28/2016 with severe diarrhea. Laboratory tests and cultures were obtained and patient was started on intravenous (IV) fluids. Later, results came back positive for Campylobacter. Patient was started on azithromycin. With the treatments, patient started to show gradual improvement and the patient's bowel movements pattern returned to her baseline and patient was evaluated by physical therapy and patient was cleared for discharge on 12/02/2016 with almost complete resolution of her diarrhea. OBJECTIVE: VITAL SIGNS: Temperature 98.1, pulse 90, respirations 18, blood pressure 135/77, pulse oximetry 93% in room air. LABORATORY DATA: WBC 9.8, hemoglobin 10.3, hematocrit 30.2, platelet count 242. Sodium 145, potassium 3.6, chloride 116, carbon dioxide 20, BUN 19, creatinine 0.9, GFR 56.8 (on admission, patient had creatinine of 3.11 with a GFR of 15.1), glucose 88, calcium 7.5, magnesium 1.8. Total bilirubin 0.3, AST 40, ALT 38, alkaline phosphatase 91, total protein 5.7, albumin 2.5. MICROBIOLOGY: Blood cultures 11/28/2016 are negative are 72 hours times two sets. Gastrointestinal (GI) panel from 11/28/2016 show positive for Campylobacter. Respiratory panel on 11/28/2016 was negative. A urine culture from 11/28/2016 was negative. IMAGING: Portable chest x-ray on 11/28/2016 showed bibasilar atelectasis or scar. Renal ultrasound on 11/28/2016 showed bilateral cortical thinning. Small bilateral renal cyst. DISCHARGE MEDICATION: - benzonatate 100 mg by mouth three times a day as needed for cough, a seven day supply - Tylenol 1000 mg by mouth four times a day as needed - allopurinol 300 mg by mouth at bedtime - atenolol 20 mg by mouth daily - atorvastatin 40 mg by mouth at bedtime - calcitriol 0.25 mcg by mouth twice weekly - vitamin D 1000 units by mouth daily - Sensipar 16 mg by mouth five times a week - diltiazem 30 mg by mouth twice a day - ferrous sulfate 325 mg by mouth daily - Lasix 40 mg by mouth daily - spironolactone 25 mg by mouth daily DISCHARGE INSTRUCTIONS: Discontinue lines, discharge home, activities as tolerated. Low salt diet as tolerated. Patient should follow with her primary care provider, Dr. Luz Mcneil, in 7-10 days. DISCHARGE CONDITION: Stable. DISCHARGE TIME: Greater than 30 minutes.
== END 2016-12-02 16:12 | disposition home or self-care (01) | DRG 372 ==
LOC: M ED 10:26 → M ED INP 14:23 → M PCU 17:25 → M MSPAV 11-29 13:17
PROVIDERS: ADMIT Internal Medicine; ATTEND Internal Medicine
DX: A04.5 Campylobacter enteritis (principal); N17.9 Acute kidney failure, unspecified; I50.32 Chronic diastolic (congestive) heart failure; K57.32 Diverticulitis of large intestine without perforation or abscess without bleeding; I13.0 Hypertensive heart and chronic kidney disease with heart failure and stage 1 through stage 4 chronic kidney disease, or unspecified chronic kidney disease; E87.2 Acidosis; I48.0 Paroxysmal atrial fibrillation; N18.3 Chronic kidney disease, stage 3 (moderate); M10.9 Gout, unspecified; E78.5 Hyperlipidemia, unspecified; Z79.899 Other long term (current) drug therapy; Z88.8 Allergy status to other drugs, medicaments and biological substances; Z88.2 Allergy status to sulfonamides; K44.9 Diaphragmatic hernia without obstruction or gangrene; I34.0 Nonrheumatic mitral (valve) insufficiency

== ENCOUNTER → 2018-09-08 | Outpatient (REF) | payer MEDICARE ==
[~2018-09-08] MED LIST changes: -/PANT40TA; -/WARF25TA; -/WARF5TA; +ATEN25TA PO; -ATENOLOL 25 MG TAB PO SCH; +ATOR40TA75; +ATOR40TA75 PO; +BENZ-18 PO; +CALC1CAP31; +CALC1CAP31 PO; +CEFD1CAP8; +CEFD1CAP8 PO; +CINA30TA4; +COUM1TAB17; +COUM1TAB18; +DILT30TA; +DILT30TA PO; +FERR1TAB8 PO; +FERR325T3 PO; +FURO40TA2; +FURO40TA2 PO; +ICAPCAP PO; +PROT1TAB2; +SENS60TA PO; +SPIR-10; +SPIR-10 PO; +TRAM1CAP15 PO; +TYLE500T78 PO; +VITA100066 PO; +VITA100067 PO; +ZYLO300T6 PO
[2018-09-10 08:14] LABS: LDL DIRECT 98 mg/dL (0-99)
== END ==
LOC: M LAB REF 16:37
PROVIDERS: ATTEND Internal Medicine
DX: E78.5 Hyperlipidemia, unspecified (principal)

== ENCOUNTER → 2019-09-21 | Outpatient (REF) | payer MEDICARE ==
[2019-09-23 08:10] LABS: LDL DIRECT 85 mg/dL (0-99)
== END ==
LOC: M LAB REF 17:17
PROVIDERS: ATTEND Nurse Practitioner Family
DX: E78.00 Pure hypercholesterolemia, unspecified (principal)

== ENCOUNTER → 2021-01-15 | Outpatient (REF) | payer MEDICARE ==
[~2021-01-15] MED LIST changes: -CEFD1CAP8; -CEFD1CAP8 PO; +CEFD300C41; +CEFD300C41 PO
== END ==
LOC: M LAB REF 17:10
PROVIDERS: ATTEND Nurse Practitioner Family
DX: E83.39 Other disorders of phosphorus metabolism (principal)

== ENCOUNTER → 2021-01-17 | Outpatient (REF) | payer OTHER ==
[~2021-01-17] MED LIST changes: +CEFD1CAP8; +CEFD1CAP8 PO; -CEFD300C41; -CEFD300C41 PO
[2021-01-22 08:12] LABS: LDL DIRECT 78 mg/dL (0-99)
== END ==
LOC: M LAB REF 11:25
PROVIDERS: ATTEND Registered Nurse
DX: E78.00 Pure hypercholesterolemia, unspecified (principal)